=== PATIENT | male | born 1945 ===

== ENCOUNTER 2024-10-02 17:50 | Inpatient (IN) | payer MEDICARE, OTHER ==
[~2024-10-02] VITALS: Ht 180.3 cm; Wt 144.8 kg
[2024-10-02 20:01] VITALS: BP 152/68
[2024-10-02 20:23] VITALS: BP 145/58
[2024-10-02] MEDS ORDERED: ACET325 PO (21:29)
[2024-10-02] MEDS ORDERED: MIRALAX17 GM PO (21:29)
[2024-10-02] MEDS ORDERED: DOCU100 PO (21:30)
[2024-10-02] MEDS ORDERED: EXCEDRIN PM HE1 EACH PO (21:31)
[2024-10-02] MEDS ORDERED: Amiodarone HCl200 MG PO (21:32)
[2024-10-02] MEDS ORDERED: Aspir 8181 MG PO (21:33)
[2024-10-02] MEDS ORDERED: ATOR40TA PO (21:33)
[2024-10-02] MEDS ORDERED: FURO80 PO (21:34)
[2024-10-02] MEDS ORDERED: GABA300 PO (21:37)
[2024-10-02 21:38] LABS: BASOPHILS ABSOLUTE AUTO 0.05 K/mm3 (0.00-0.23); BASOPHILS PERCENT AUTO 0 % (0-2); EOSINOPHILS ABSOLUTE AUTO 0.08 K/mm3 (0.00-0.68); EOSINOPHILS PERCENT AUTO 1 % (0-6); Hematocrit 37.6 % (37.0-53.0); Hemoglobin 12.6 g/dL (13.5-17.5); IMMATURE GRAN ABSOLUTE AUTO 0.22 K/mm3 (0.00-0.10); IMMATURE GRAN PERCENT AUTO 2 % (0-1); LYMPHOCYTES ABSOLUTE AUTO 1.44 K/mm3 (0.84-5.20); LYMPHOCYTES PERCENT AUTO 12 % (21-46); MONOCYTES ABSOLUTE AUTO 1.38 K/mm3 (0.16-1.47); MONOCYTES PERCENT AUTO 11 % (4-13); Mean Corpuscular HGB Conc 33.5 g/dL (31.5-36.5); Mean Corpuscular Volume 92 fL (80-100); NEUTROPHILS ABSOLUTE AUTO 9.38 K/mm3 (1.96-9.15); NEUTROPHILS PERCENT AUTO 75 % (41-73); NRBC ABSOLUTE 0.00 K/mm3 (0.00-0.02); NRBC Auto 0.0 /100 WBC (0.0-0.2); Platelet Count 297 K/mm3 (150-400); RDW Coefficient Variation 13.8 % (11.7-14.2); RDW Standard Deviation 46.5 fL (35.1-46.3)
[2024-10-02] MEDS ORDERED: LISI20 PO (21:38)
[2024-10-02] MEDS ORDERED: PANT40 PO (21:39)
[2024-10-02] MEDS ORDERED: OXYC5 PO (21:39)
[2024-10-02] MEDS ORDERED: PRAM.125 PO (21:41)
[2024-10-02] MEDS ORDERED: Flomax0.4 MG PO (21:41)
[2024-10-02] MEDS ORDERED: TRAM50 PO (21:42)
[2024-10-02] MEDS ORDERED: OZEMPIC1 MG/0.72 SC (21:44)
[2024-10-02] MEDS ORDERED: PRESERVISION A1 EAC1 PO (21:47)
[2024-10-02] MEDS ORDERED: BISA5EC PO (21:48)
[2024-10-02] MEDS ORDERED: MULVITA PO (21:48)
[2024-10-02] MEDS ORDERED: SENNA LAXATIVE8.6 MG PO (21:49)
[2024-10-02] MEDS ORDERED: B-12500 MC2 PO (21:49)
[2024-10-02] MEDS ORDERED: C COMPLEX1000 M1 PO (21:50)
[2024-10-02] MEDS ORDERED: THERA-D2000 UNIT PO (21:50)
[2024-10-02 22:05] LABS: Alanine Aminotransfer (ALT/SGP 69.0 U/L (12-78); Albumin, Blood 2.5 g/dL (3.4-5.0); Albumin/Globulin Ratio 0.6 (0.8-1.8); Anion Gap 7.0 mmol/L (3-11); Aspartate Aminotrans (AST/SGOT 53.0 U/L (12-37); Bilirubin, Total 0.7 mg/dL (0.1-1.0); Blood Urea Nitrogen 32.0 mg/dL (8-24); CO2, Blood 30.0 mmol/L (21-32); Calcium, Blood 9.0 mg/dL (8.5-10.1); Chloride, Blood 105.0 mmol/L (98-108); Creatinine, Blood 1.62 mg/dL (0.60-1.20); Globulin, Blood 4.2 g/dL (2.2-4.0); Glucose, Blood 102.0 mg/dL (70-99); Magnesium, Blood 2.1 mg/dL (1.6-2.4); Potassium, Blood 3.6 mmol/L (3.5-5.5); Sodium, Blood 138.0 mmol/L (136-145); Thyroid Stimulating Hormone 1.14 uIU/mL (0.360-4.800); Total Protein, Blood 6.7 g/dL (6.4-8.2)
[2024-10-02] MEDS ORDERED: Polyethylene Glycol 3350 17 gm PO PRN (23:20)
[2024-10-02 23:58] VITALS: BP 185/79
[2024-10-03 04:04] LABS: BASOPHILS ABSOLUTE AUTO 0.05 K/mm3 (0.00-0.23); BASOPHILS PERCENT AUTO 0 % (0-2); EOSINOPHILS ABSOLUTE AUTO 0.10 K/mm3 (0.00-0.68); EOSINOPHILS PERCENT AUTO 1 % (0-6); Hematocrit 35.8 % (37.0-53.0); Hemoglobin 12.0 g/dL (13.5-17.5); IMMATURE GRAN ABSOLUTE AUTO 0.22 K/mm3 (0.00-0.10); IMMATURE GRAN PERCENT AUTO 2 % (0-1); LYMPHOCYTES ABSOLUTE AUTO 1.39 K/mm3 (0.84-5.20); LYMPHOCYTES PERCENT AUTO 11 % (21-46); MONOCYTES ABSOLUTE AUTO 1.33 K/mm3 (0.16-1.47); MONOCYTES PERCENT AUTO 11 % (4-13); Mean Corpuscular HGB Conc 33.5 g/dL (31.5-36.5); Mean Corpuscular Volume 93 fL (80-100); NEUTROPHILS ABSOLUTE AUTO 9.16 K/mm3 (1.96-9.15); NEUTROPHILS PERCENT AUTO 75 % (41-73); NRBC ABSOLUTE 0.00 K/mm3 (0.00-0.02); NRBC Auto 0.0 /100 WBC (0.0-0.2); Platelet Count 301 K/mm3 (150-400); RDW Coefficient Variation 13.8 % (11.7-14.2); RDW Standard Deviation 46.9 fL (35.1-46.3)
[2024-10-03 04:12] VITALS: BP 134/50
[2024-10-03 04:46] LABS: Alanine Aminotransfer (ALT/SGP 84.0 U/L (12-78); Albumin, Blood 2.4 g/dL (3.4-5.0); Albumin/Globulin Ratio 0.6 (0.8-1.8); Anion Gap 6.0 mmol/L (3-11); Aspartate Aminotrans (AST/SGOT 70.0 U/L (12-37); Bilirubin, Total 0.7 mg/dL (0.1-1.0); Blood Urea Nitrogen 33.0 mg/dL (8-24); CO2, Blood 30.0 mmol/L (21-32); Calcium, Blood 8.5 mg/dL (8.5-10.1); Chloride, Blood 106.0 mmol/L (98-108); Creatinine, Blood 1.68 mg/dL (0.60-1.20); Globulin, Blood 3.9 g/dL (2.2-4.0); Glucose, Blood 101.0 mg/dL (70-99); Potassium, Blood 3.8 mmol/L (3.5-5.5); Sodium, Blood 138.0 mmol/L (136-145); Total Protein, Blood 6.3 g/dL (6.4-8.2)
[2024-10-03 05:07] LABS: Source, Urine Clean Catch
--- NOTE | 2024-10-03 05:14 | NUR ---
SHIFT SUMMARY PATIENT ARRIVED TO PCU 18 VIA DIRECT TRANSFER FROM [place]. PATIENT ALERT AND ORIENTED X4, ABLE TO GET UP WITH MINIMAL ASSISTANCE. REPORTS NEUROPATHY TO BOTH FEET. WOUNDS NOTED TO BUTTOCKS AND BOTTOM OF RIGHT FOOT, DR CROW NOTIFIED, PHOTOS ON CHART. PATIENT NOTED TO BE DYSPNIC WITH ACTIVITY, ON ROOM WITH WITH SPO2 >90%. VITAL SIGNS STABLE, BRADYCARDIC IN THE 50'S, DENIES ANY SYMPTOMS. WILL CONTINUE TO MONITOR. CALL LIGHT WITHIN REACH.
[2024-10-03 05:38] LABS: Bilirubin, Urine Neg (Neg); Color, Urine Yellow (P-Yellow); Glucose Qualitative, Urine Neg (Neg); Ketones, Urine Neg (Neg); Leukocyte Esterase, Urine 3+ (Neg); Protein, Urine 2+ (Neg); Specific Gravity, Urine 1.010 (1.003-1.022); Urobilinogen, Urine NORM (Normal)
[2024-10-03 05:46] LABS: Red Blood Cells, Urine TNTC /hpf (0-2); White Blood Cells, Urine TNTC /hpf (0-5)
[2024-10-03 07:59] VITALS: BP 154/71
[2024-10-03] MEDS ORDERED: Multivitamins 1 Tab PO SCH (09:00)
[2024-10-03] MEDS ORDERED: CefTRIAXone Sodium 1,000 MG in NS 100 ML IV SCH (09:00)
[2024-10-03] MEDS ORDERED: Cholecalciferol 1000 Unit Tablet (=25MCG) PO SCH (09:00)
[2024-10-03] MEDS ORDERED: Heparin Sodium,Porcine 5,000 UNIT/0.5 ML SDV SC SCH (09:00)
[2024-10-03] MEDS ORDERED: Enoxaparin 40 MG/0.4 ML SYR SC SCH (11:00)
[2024-10-03 11:34] VITALS: BP 135/69
[2024-10-03 16:45] VITALS: BP 142/78
--- NOTE | 2024-10-03 17:58 | NUR ---
SHIFT SUMMARY PT A/OX4 AND COOPERATIVE OF CARE. PT ABLE TO EXPRESS NEEDS AND CALLS APPROPIATE. PT SBA VIA FWW, TOLERATES FAIR. PT SB-ST DURING SHIFT WITH BLOCKED PAC'S. PT HAD A 2.47 SEC PAUSE, PIG LEAD MELTER HELPER NOTIFIED AND RHYTHM STRIP SENT TO MD. PLAN FOR PACEMAKER IN THE MORNING, NPO AT MIDNIGHT. OTHER VSS THROGHOUT SHIFT. PT REPORTED PAIN TO HIS BOTTOM D/T ESCORIATION, SEE PHOTOS IN CHART. PT UPDATED ON PLAN OF CARE. PT USING URINAL AT BEDSIDE, TOLERATES WELL.ECHO DONE THIS SHIFT, SEE NOTES.
[2024-10-03 19:32] VITALS: BP 156/74
[2024-10-04] VITALS (15 sets, daily range): BP systolic 120–165; BP diastolic 56–89
--- NOTE | 2024-10-04 06:11 | NUR ---
SHIFT SUMMARY PATIENT ALERT AND ORINETED X4. HAD NO COMPLAINTS OF PAIN OR SHORTNESS OF BREATH. PATIENT REQUIRED 2 LITERS OXYGEN TO MAINTAIN SPO2 >90% WHILE SLEEPING. ON ROOM AIR WHILE AWAKE. VITAL SIGNS STABLE. WILL CONTINUE TO MONITOR. CALL LIGHT WITHIN REACH.
--- NOTE | 2024-10-04 07:55 | NUR ---
PATIENT SLEEPING, MADE WANTS KNOW TO WAIT FOR AM MEDICATIONS, WAKES EASILY AND BACK TO SLEEP, DR MARIE ROUNDED THIS AM, PACER SCHEDULED FOR 1 PM WILDA, CALL LIGHT WITH IN REACH
[2024-10-04] MEDS ORDERED: Heparin Sodium 1000 Units/ML 10ML MDV ONE (11:50)
[2024-10-04] MEDS ORDERED: NS 1,000 ML IV ONE ×2 (11:50→12:05)
[2024-10-04] MEDS ORDERED: Bupivacaine 0.5% HCl 5 MG/ML 30MLVIAL ONE ×2 (11:50→12:01)
[2024-10-04] MEDS ORDERED: Vancomycin HCl 1000 MG ADDvantage ONE (11:50)
[2024-10-04] MEDS ORDERED: FentaNYL Citrate 50 MCG/ML 2 ML Injection ONE ×3 (12:04→13:40)
[2024-10-04] MEDS ORDERED: Midazolam HCl 1MG / ML 2ML Vial ONE ×3 (12:04→13:40)
--- NOTE | 2024-10-04 12:47 | NUR ---
PT TAKEN TO [facility]. WILL AWAIT RETURN
[2024-10-04] MEDS ORDERED: DiphenhydrAMINE HCl 50 MG/ML 1ML Vial ONE (13:28)
[2024-10-04] MEDS ORDERED: Lidocaine 2%-Epineph 1:100000 20 ML MDV ONE (14:07)
--- NOTE | 2024-10-04 16:55 | NUR ---
NO ACUTE CHANGES, 100% PACED, GISSELLE MOHR, ICE TO LEFT UPPER CHEST SURGERY SITE, LEFT SHOULDER IN SLING, LEFT SLING/ARM NOT TO BE MOVED UNTIL IN AM, [employer] REPRESETATIVE TO BE IN FOR APPLIANCE EDUCATIONS AND PACER INTEROGATED, PATIENT WORKED WITH PT. NO DIFFICULTIE SWALLOWING, ALERT AND ORIENTED X4, CALL LIGHT WITH IN REACH
[2024-10-05] VITALS (7 sets, daily range): BP systolic 130–150; BP diastolic 60–77
[2024-10-05 05:16] LABS: BASOPHILS ABSOLUTE AUTO 0.09 K/mm3 (0.00-0.23); BASOPHILS PERCENT AUTO 1 % (0-2); EOSINOPHILS ABSOLUTE AUTO 0.14 K/mm3 (0.00-0.68); EOSINOPHILS PERCENT AUTO 1 % (0-6); Hematocrit 38.6 % (37.0-53.0); Hemoglobin 12.7 g/dL (13.5-17.5); IMMATURE GRAN ABSOLUTE AUTO 0.12 K/mm3 (0.00-0.10); IMMATURE GRAN PERCENT AUTO 1 % (0-1); LYMPHOCYTES ABSOLUTE AUTO 1.27 K/mm3 (0.84-5.20); LYMPHOCYTES PERCENT AUTO 10 % (21-46); MONOCYTES ABSOLUTE AUTO 1.04 K/mm3 (0.16-1.47); MONOCYTES PERCENT AUTO 9 % (4-13); Mean Corpuscular HGB Conc 32.9 g/dL (31.5-36.5); Mean Corpuscular Volume 93 fL (80-100); NEUTROPHILS ABSOLUTE AUTO 9.63 K/mm3 (1.96-9.15); NEUTROPHILS PERCENT AUTO 78 % (41-73); NRBC ABSOLUTE 0.00 K/mm3 (0.00-0.02); NRBC Auto 0.0 /100 WBC (0.0-0.2); Platelet Count 340 K/mm3 (150-400); RDW Coefficient Variation 13.9 % (11.7-14.2); RDW Standard Deviation 46.8 fL (35.1-46.3)
[2024-10-05 05:40] LABS: Anion Gap 5.0 mmol/L (3-11); Blood Urea Nitrogen 28.0 mg/dL (8-24); CO2, Blood 32.0 mmol/L (21-32); Calcium, Blood 8.8 mg/dL (8.5-10.1); Chloride, Blood 104.0 mmol/L (98-108); Creatinine, Blood 1.63 mg/dL (0.60-1.20); Glucose, Blood 106.0 mg/dL (70-99); Magnesium, Blood 2.0 mg/dL (1.6-2.4); Potassium, Blood 4.0 mmol/L (3.5-5.5); Sodium, Blood 137.0 mmol/L (136-145)
--- NOTE | 2024-10-05 06:33 | NUR ---
SHIFT SUMMARY PATIENT ALERT AND ORIENTED X4. MEDICATED PER EMAR FOR PAIN. NO SIGNS BLEEDING NOTED AT SURGICAL SITE. PATIENT AGAIN DESATED TO THE 80'S WHILE SLEEPING AND REQUIRED 2 LITERS O2 VIA NC, NO ISSUES ON ROOM AIR WHILE AWAKE. VITAL SIGNS STABLE. WILL CONTINUE TO MONITOR. CALL LIGHT WITHIN REACH.
[2024-10-05] MEDS ORDERED: Vancomycin HCl 1000 MG ADDvantage ONE (08:49)
[2024-10-05] MEDS ORDERED: NS 1,000 ML IV ONE ×2 (08:50→08:51)
[2024-10-05] MEDS ORDERED: Heparin Sodium 1000 Units/ML 10ML MDV ONE (08:50)
[2024-10-05] MEDS ORDERED: NS 250 ML IV ONE (08:51)
[2024-10-05] MEDS ORDERED: Diltiazem HCl 180 MG Cap.CD PO SCH (09:00)
[2024-10-05] MEDS ORDERED: Bupivacaine 0.5% HCl 5 MG/ML 30MLVIAL ONE ×2 (09:30→10:20)
[2024-10-05] MEDS ORDERED: FentaNYL Citrate 50 MCG/ML 2 ML Injection ONE ×3 (09:37→11:50)
[2024-10-05] MEDS ORDERED: Midazolam HCl 1MG / ML 2ML Vial ONE (09:37)
--- NOTE | 2024-10-05 12:09 | NUR ---
ASSUMED CARE OF PT. A/O X 4 PLEASENT AND COOPERATIVE WITH CARE. MINIMAL PAIN TO LEFT SHOULD AT PACEMAKER SITE. SITE CDI AND IMMOBILIZER PLACED. PT MEDICATED FOR LEFT SHOULD DISCOMFORT. DR PEREZ INTO SEE PT, POSSIBLE DISCHARGE. CALL LIGHT WITHIN REACH
--- NOTE | 2024-10-05 12:11 | NUR ---
PROTECTIVE SERVICE SPECIALIST IN TO INTERROGATE PACEMAKER. LEAD FAIL IDENTIFIED AND WILL HAVE TO BE REPLACED, PT AWARE AND IS CURRENTLY NPO FOR PROCEDURE. 0940 PT TAKEN DOWNSTAIRS.
[2024-10-05] MEDS ORDERED: HydrALAZINE HCl 20 MG / ML 1ML Vial IV PRN (12:15)
--- NOTE | 2024-10-05 12:54 | NUR ---
1230 PT RETURNED A/O VSS PRESSURE DRESSING TO LEFT CHEST WALL FOR PROCEDURAL HEMATOMA, MONITOR SHOWS AV PACED. MINIMAL PAIN TO SITE, ICE APPLIEFD. SITE IS SOFT AND TENDER.
[2024-10-05] MEDS ORDERED: CefTRIAXone Sodium 1,000 MG in NS 100 ML IV ONE (13:15)
--- NOTE | 2024-10-05 15:46 | NUR ---
NO CHANGE PT CONTINUE AV PACED WITH PAIN ON PALPATION TO SITE. SITE REMAINS SOFT, ICE PACK APPLIED .
--- NOTE | 2024-10-05 18:42 | NUR ---
NO CHANGE IN CONDITION MINIMAL PAIN. PT ASSISTED TO BSC WITHOUT INCIDENT, PT UNDERSTANDS AND ITS BEEN EXPLAINED THAT HE NEEDS TO REMAIN WITH THE SLING TO HIS LEFT ARM AND NOT MOVE THAT LEFT SIDE. PT VERBALIZED UNDERSTANDING. CALL LIGHT WITHIN REACH
--- NOTE | 2024-10-06 03:45 | NUR ---
PHYSICIAN MEDICATION REQUEST PT PAIN UNCONTROLLED W CURRENT PRN REGIMEN. TOO SOON TO GIVE PRN TYLENOL OR ULTRAM. DR BAIN TO LOOK AT CHART AND WILL ORDER SOMETHING AFTER TAKING CARE OF CURRENT PT.
[2024-10-06 03:59] VITALS: BP 132/68
[2024-10-06 04:55] LABS: Hematocrit 34.8 % (37.0-53.0); Hemoglobin 11.5 g/dL (13.5-17.5); Mean Corpuscular HGB Conc 33.0 g/dL (31.5-36.5); Mean Corpuscular Volume 94 fL (80-100); NRBC ABSOLUTE 0.00 K/mm3 (0.00-0.02); NRBC Auto 0.0 /100 WBC (0.0-0.2); Platelet Count 349 K/mm3 (150-400); RDW Coefficient Variation 13.9 % (11.7-14.2); RDW Standard Deviation 46.7 fL (35.1-46.3)
[2024-10-06 05:34] LABS: Anion Gap 6.0 mmol/L (3-11); Blood Urea Nitrogen 25.0 mg/dL (8-24); CO2, Blood 30.0 mmol/L (21-32); Calcium, Blood 8.1 mg/dL (8.5-10.1); Chloride, Blood 106.0 mmol/L (98-108); Creatinine, Blood 1.51 mg/dL (0.60-1.20); Glucose, Blood 107.0 mg/dL (70-99); Potassium, Blood 4.0 mmol/L (3.5-5.5); Sodium, Blood 138.0 mmol/L (136-145)
--- NOTE | 2024-10-06 06:26 | NUR ---
END OF SHIFT RN NOTE PT HAD NO ACUTE EVENTS OVERNIGHT. V PACED WITH NO ECTOPY, NO CHEST PAIN OR SOB, NOR LIGHTHEADEDNESS OR DIZZYNESS. PAIN AT PACER INCISION. NO OOZING, BRUISING OR SWEELIN OR HARDNESS AROUND SITE. PT GIVEN ULTRAM AND TYLENOL PER JUN BUT MAY RECQUIRE INCREASED PAIN MEDICATION TODAY. MD CALLED FOR ADDITIONAL BREAKTHRU MEDICATION NEED, BUT PRNS WERE ABLE TO BE ADMINISTERED ON MD CALL BACK. WILL REINFORCE TO DAY RN TO RECQUEST TO TEAM. PT USED ARM SLING OVERNIGHT, AND REINSTRUCTED L ARM TO BE LOWER THAN SHOULDER FOR NEXT 28 DAYS. VSS BUT PT RECQUIRED 2 LITERS NC FOR DESATTING IN LOW 80'S WHILE SLEEPING IN RHYTMIC CYCLES. PT ABLE TO GET OOB W STANDBY ASSIST AND STABLE ONCE ON FEET. CONTINUED CARDIAC CARE REINFORCED. BEDLOW AND LOCKED, UPPER SIDE RAILS UP AND SCDS ON.
[2024-10-06 07:44] VITALS: BP 136/69
[2024-10-06 11:44] VITALS: BP 129/74
[2024-10-06 15:47] VITALS: BP 137/68
--- NOTE | 2024-10-06 16:16 | NUR ---
PT SUMMARY; NO ACUTE CHANGE FOR THE SHIFT, DR CHAMORRO CAME SAW PT THIS MORNING AND CLEAR PT FOR DISCHARGE, PT REQUESTED TO STAY ANOTHER NIGHT FOR MORE OBSERVATION AND TRANSPORTATION ISSUE. DR KRISHNA WAS AGREEABLE WITH THE PT'S REQUEST. VITALS HAS BEEN STABLE, PT MADE MEDICAL STATUS WITH TELE. PT HAS BEEN C/O PAIN ON THE PACER SITE, TENDER TO TOUCH SOME REDNESS AROUND THE SITE. PT HAS BEEN KEEPING ICE PACK TO RELIEVE SOME PAIN, ALSO ON PAIN MEDS NEEDED. PT HAS BEEN AMBUALATING IN THE ROOM VIA WALKER. USES BEDSIDE COMMODE FOR TOILETING. PT CONTINUES ON IV ABO. NO OTHER ISSUES OR CHANGES REPORTED FOR THE SHIFT. SLEEP STUDY TO BE DONE TONIGHT. CALLS APPROPRIATELY. WILL CONTINUE TO MONITOR
--- NOTE | 2024-10-06 19:26 | NUR ---
RN ASSUMPTION OF CARE REPORT AND BEDSIDE ROUNDING DONE ON PT. DISCUSSED PLAN OF CARE TO INCLUDE BEDSIDE SLEEP STUDY AND PAIN MANAGEMENT AND SCHEDULED MEDICATIONS. PT BROUGHT FRESH ICE PACKS FOR PACER SITE AND SITE ASSESSED FOR HARDENED AREA ON TOP OF PACER W HEMATOMA.
[2024-10-06 20:26] VITALS: BP 122/55
[2024-10-07 00:31] VITALS: BP 123/64
[2024-10-07 03:37] VITALS: BP 112/53
[2024-10-07 05:43] LABS: BASOPHILS ABSOLUTE AUTO 0.09 K/mm3 (0.00-0.23); BASOPHILS PERCENT AUTO 1 % (0-2); EOSINOPHILS ABSOLUTE AUTO 0.23 K/mm3 (0.00-0.68); EOSINOPHILS PERCENT AUTO 2 % (0-6); Hematocrit 36.7 % (37.0-53.0); Hemoglobin 11.9 g/dL (13.5-17.5); IMMATURE GRAN ABSOLUTE AUTO 0.21 K/mm3 (0.00-0.10); IMMATURE GRAN PERCENT AUTO 2 % (0-1); LYMPHOCYTES ABSOLUTE AUTO 1.52 K/mm3 (0.84-5.20); LYMPHOCYTES PERCENT AUTO 11 % (21-46); MONOCYTES ABSOLUTE AUTO 1.12 K/mm3 (0.16-1.47); MONOCYTES PERCENT AUTO 8 % (4-13); Mean Corpuscular HGB Conc 32.4 g/dL (31.5-36.5); Mean Corpuscular Volume 94 fL (80-100); NEUTROPHILS ABSOLUTE AUTO 11.02 K/mm3 (1.96-9.15); NEUTROPHILS PERCENT AUTO 78 % (41-73); NRBC ABSOLUTE 0.00 K/mm3 (0.00-0.02); NRBC Auto 0.0 /100 WBC (0.0-0.2); Platelet Count 301 K/mm3 (150-400); RDW Coefficient Variation 13.8 % (11.7-14.2); RDW Standard Deviation 46.8 fL (35.1-46.3)
[2024-10-07 06:01] LABS: Anion Gap 6.0 mmol/L (3-11); Blood Urea Nitrogen 34.0 mg/dL (8-24); CO2, Blood 30.0 mmol/L (21-32); Calcium, Blood 8.4 mg/dL (8.5-10.1); Chloride, Blood 106.0 mmol/L (98-108); Creatinine, Blood 1.82 mg/dL (0.60-1.20); Glucose, Blood 130.0 mg/dL (70-99); Potassium, Blood 4.0 mmol/L (3.5-5.5); Sodium, Blood 138.0 mmol/L (136-145)
--- NOTE | 2024-10-07 06:07 | NUR ---
RN SHIFT REPORT PT VSS OVERNIGHT. PT REFUSED SLEEP STUDY, CALCULATING MINUTES HE HAS BEEN ALIVE WITHOUT AID OF SLEEP O2 ASSISTANCE. RN AND RT EDUCATED PT ON SLEEP APNEA AND DESATURATION HARMFUL TO HEART BUT PT DENIED TEST AND TO WEAR O2 MONITOR OVERNIGHT. PAIN TO LEFT CHEST SITE OF PACEMAKER INCISION WAS MANAGED W PRN MEDICATIONS AND GIVEN PER JUN TIMING W PRN ROXYCODONE, TYLENOL AND ULTRAM. HEART RATE VPACED OVERNIGHT. MD NOTE STATES IV ABX FOR UTI TO BE CHANGED TO PO TODAY FOR LIKELY DC HOME W FAMILY. REINFORCED PT TO NOT LIFT LEFT ARM FOR 28 DAYS ABOVE SHOULDER OR LEASING COORDINATOR THINGS W THAT ARM. PT DENIED ANY LIGHTHEADEDNESS OR DIZZINESS OR FATIGUE THIS SHIFT.
[2024-10-07 07:25] VITALS: BP 117/55
--- NOTE | 2024-10-07 07:46 | NUR ---
UPDATE: MD AT BEDSIDE, PLAN FOR D/C LATER THIS AFTERNOON.
[2024-10-07] MEDS ORDERED: Lactobacil 2-S.Thermo-Bifido 1 1 Cap PO SCH (09:00)
[2024-10-07] MEDS ORDERED: OXAYDO5 M4 PO (11:14)
[2024-10-07] MEDS ORDERED: DILT180 PO (11:15)
[2024-10-07] MEDS ORDERED: DOXY100 PO (11:15)
[2024-10-07] MEDS ORDERED: PROBIOTIC1 EA13 PO (11:16)
--- NOTE | 2024-10-07 11:43 | NUR ---
DISCHARGE: PT D/C PCU 18 @7115 VIA WHEELCHAIR. DISCHARGE INSTRUCTIONS AND EDUCATION PROVIDED. MEDICATIONS CALLED INTO [facility]. ALL BELONGINGS WITH PT.
[2024-10-08] MEDS ORDERED: LOSARTAN POTAS100 M1 PO (08:28)
== END 2024-10-07 12:57 | disposition home or self-care (01) | DRG 243 ==
LOC: PCU 17:50
PROVIDERS: Internal Medicine Cardiovascular Disease; Student in an Organized Health Care Education/Training Program; ADMIT Family Medicine
PROC: 02H63JZ Insertion of Pacemaker Lead into Right Atrium, Percutaneous Approach (ICD-10-PCS; principal; 2024-10-04)
PROC: 0JH606Z Insertion of Pacemaker, Dual Chamber into Chest Subcutaneous Tissue and Fascia, Open Approach (ICD-10-PCS; 2024-10-04)
PROC: 02WA3MZ Revision of Cardiac Lead in Heart, Percutaneous Approach (ICD-10-PCS; 2024-10-04)
PROC: 02HK3JZ Insertion of Pacemaker Lead into Right Ventricle, Percutaneous Approach (ICD-10-PCS; 2024-10-04)
DX: I49.5 Sick sinus syndrome (principal); I13.0 Hypertensive heart and chronic kidney disease with heart failure and stage 1 through stage 4 chronic kidney disease, or unspecified chronic kidney disease; I45.3 Trifascicular block; I50.32 Chronic diastolic (congestive) heart failure; N39.0 Urinary tract infection, site not specified; I44.1 Atrioventricular block, second degree; G25.81 Restless legs syndrome; I25.10 Atherosclerotic heart disease of native coronary artery without angina pectoris; K59.00 Constipation, unspecified; Z66 Do not resuscitate; K21.9 Gastro-esophageal reflux disease without esophagitis; D72.829 Elevated white blood cell count, unspecified; E66.01 Morbid (severe) obesity due to excess calories; N18.9 Chronic kidney disease, unspecified; R30.0 Dysuria; R35.0 Frequency of micturition; N40.1 Benign prostatic hyperplasia with lower urinary tract symptoms; G89.4 Chronic pain syndrome; N18.30 Chronic kidney disease, stage 3 unspecified; L89.311 Pressure ulcer of right buttock, stage 1; L89.321 Pressure ulcer of left buttock, stage 1; L89.891 Pressure ulcer of other site, stage 1; G47.30 Sleep apnea, unspecified; Z95.1 Presence of aortocoronary bypass graft; Z90.49 Acquired absence of other specified parts of digestive tract; Z96.653 Presence of artificial knee joint, bilateral; Z88.0 Allergy status to penicillin; Z79.82 Long term (current) use of aspirin; Z79.891 Long term (current) use of opiate analgesic; Z79.85 Long-term (current) use of injectable non-insulin antidiabetic drugs; Z79.899 Other long term (current) drug therapy
CPT/HCPCS: 33208; 36415; 71045; 71046; 80048; 80053; 81001; 82947; 83735; 83880; 84145; 84443; 84484; 85025; 85027; 87077; 87086; 87186; 93005; 93010; 94762; 96365; 96372; 97116; 97162; 99152; 99153; A9270; C1781; C1785; C1898; C8929; G0378; J0461; J0696; J1200; J1644; J1650; J2250; J3010; J3373; J7030; J7040; J7050; Q9957; Q9967